=== PATIENT | female | born 1985 | race Caucasian/White ===

== ENCOUNTER → 2016-05-16 | Day surgery (SDC) | payer OTHER ==
[2016-03-06 07:44] VITALS: BMI 47.1
[~2016-05-16] MED LIST: BUPIVACAINE 0.25% 30 ML VIAL ONE; CEFAZOLIN 1 GM VIAL ONE; DEXAMETHASONE 4 MG/ML VIAL IV ONE; FENTANYL 100 MCG/2 ML VIAL IV ONE; FENTANYL 100 MCG/2 ML VIAL IV PRN; GLYCOPYRROLATE 1 MG VIAL IM ONE; HYDROmorphone 1 MG INJECTION IV PRN; HYDROmorphone 2 MG/ML VIAL IM ONE; KETOROLAC TROMETH 30 MG/ML VIAL IM ONE; LABETALOL 20 MG/4 ML SYRINGE IV PRN; LIDOCAINE 100 MG PFS IV ONE; MEPERIDINE 25 MG/ML TUBEX IV PRN; METHYLENE BLUE 10 MG/ML VIAL ONE; METOCLOPRAMIDE 10 MG/2 ML VIAL IV ONE; MIDAZOLAM 2 MG/2 ML VIAL IV ONE; NEOSTIGMINE 1 MG/1 ML (1:1000) INJ 10 ML MDV IM ONE; ONDANSETRON HCL 4 MG ODT TAB PO PRN; ONDANSETRON HCL 4 MG/2 ML VIAL IV ONE; ONDANSETRON HCL 4 MG/2 ML VIAL IV PRN; PROMETHAZINE 25 MG/ML VIAL IV PRN; PROMETHAZINE 25 MG/ML VIAL ONE; PROPOFOL 200 MG/20 ML VIAL IV ONE; ROCURONIUM 50 MG/5 ML VIAL IV ONE; SUCCINYLCHOLINE 20 MG/1 ML INJ 10 ML MDV IV ONE; hydrALAZINE 20 MG/ML VIAL IV PRN
[2016-05-16 08:16] LABS: MPV 8.3 fL (7.4-10.4)
--- NOTE | 2016-05-16 08:37 | HIM.ANES ---
Anesthesia Evaluation & Plan Diagnoses: PELVIC AND PERINEAL PAIN (05/16/16) Consented Procedure: Diagnostic Laparoscopy, possible laparotomy, and possible cautery of endometriosis - Focused Review of Systems Cardiac History: No: Hx Cardiac Disorders HEENT: No: Other HEENT Problems Respiratory: Yes: Hx Snoring Gastrointestinal: Yes: Hx Gastrointestinal Disorders, Hx Colonoscopy (2010), Hx Endoscopy (2010) Neurological/Musculoskeletal: No: Hx Neurological Disorders Psychological: No Hx Depression, No Hx Mental/Emotional Disorders Blood/Autoimmune: Yes: Hx Blood Transfusions, Hx Anemia No: Hx AIDS, Hx Hepatitis (type) Smoking Status: Never smoker Surgical History: Yes: Appendectomy, Cholecystectomy (2012), Back (2009 LUMBAR DISCECTOMY, 2013 LUMBAR DISCECTOMY, 2013 I&D LUMBAR SPINE), Other (BOWEL RESECTION, HERNIA REPAIR, BACK SURGERY X 2) Other Surgical History: SMALL BOWEL RESECTION 2010 - Focused Physical Exam NPO since: 05/15/16 at 2000 Mallampati: Class II Thyromental Distance: Greater than 3 Neck: Full Range of Motion Dental: Normal - no significant findings Cardiovascular/Chest: Normal Respiratory: Lungs clear Any problems with anesthesia, including nausea and vomiting?: No Any relatives with a history of Malignant Hyperthermia?: No Beta Antoinette given (if appropriate): N/A Does the patient have a history of Motion Sickness-: No Other: Problem List Problem Status Onset Cellulitis Acute Headache Acute Sepsis Acute PT/PTT/INR/ Urine Test Neg (NEGATIVE) 05/16/16 08:00 CBC/BMP/Other 05/16/16 08:05 Allergies Allergy/AdvReac Type Severity Reaction Status Date / Time No Known Allergies Allergy Verified 05/16/16 08:26 Home Medications Medication Instructions Recorded Last Taken Type Levonorgestrel-Ethin Estradiol 1 tab PO DAILY 05/11/16 05/15/16 20:00 History [Aviane-28 Tablet] Height and Weight Patient's height 5 ft 8 in Patient's weight 310 lb BMI 47.1 Vital Signs Temperature 98.2 F 05/16/16 08:37 Pulse Rate 99 05/16/16 08:37 Respiratory Rate 16 05/16/16 08:37 Blood Pressure 159/74 05/16/16 08:37 Pulse Oxygen Saturation 98 05/16/16 08:37 - Anesthetic Plan Anesthesia Type: General ASA Class: 2 -: I have examined this patient and reviewed the medical record. The patient has been assessed prior to anesthesia. Risks and benefits of anesthesia and anesthetic technique options have been discussed and all questions answered. The patient accepts the risk and desires me to proceed with the planned anesthetic.
--- NOTE | 2016-05-16 08:37 | SC.ANESPOS ---
Post-Anesthesia Note LOC: [facility] Calling Post-Anesthesia Assessment: Awake, Returned to Baseline, Hemodynamically Stable , Pain Control Adequate Phase I & II Recovery Complete: Yes Apparent Anesthesia Complication: No : N - Vital Signs Blood Pressure: 159/74 Pulse: 99 Resp Rate: 16 O2 Sat: 98 Temp: 98.2 F
[2016-05-16 08:43] LABS: SEG NEUTROPHIL 70 % (45-76)
--- NOTE | 2016-05-16 10:24 | HIMOPRPT ---
DATE OF PROCEDURE: 05/16/2016 PREOPERATIVE DIAGNOSIS: 1. Pelvic pain POSTOPERATIVE DIAGNOSIS: 1. Pelvic pain 2. Cervical polyp 3. Bilateral ovarian cysts 4. Endometriosis PROCEDURE: Cervical polypectomy and diagnostic laparoscopy with drainage of bilateral ovarian cysts SURGEON: Camelia Herring DO Customer Marketing Manager: Ricarda Garibay MD ANESTHESIOLOGIST: Dr. Puga ANESTHESIA: General ESTIMATED BLOOD LOSS: 1 mL COMPLICATIONS: None DRAINS: 300 mL of clear urine in the Palafox at the end of procedure SPECIMENS: Cervical polyp and ovarian cyst fluid FINDING: Omental adhesions in the supraumbilical region Bilateral ovarian cysts Cervical polyp Normal appearing uterus and tubes Several small areas of endometriosis lesions DESCRIPTION OF PROCEDURE: The patient was taken to the operating room she is prepped and draped in the normal sterile fashion. A Palafox catheter was inserted and then a speculum was placed so a uterine manipulator could be placed. When the speculum was inserted there is noted to be a small cervical polyp protruding from the cervical os. This was removed without difficulty using an Allis clamp. Attention was then turned to the already prepped abdomen after the uterine manipulator had been placed. The subumbilical region was injected with 0.25% plain Sensorcaine and an incision was made with a scalpel. A 5 mm port was placed under direct visualization using the laparoscope. Once intraperitoneal placement had been verified the abdomen was insufflated with gas. On initial inspection there was noted to be omental adhesions superior to the umbilicus. Liver edge appeared normal. Bilateral lower quadrant ports were then placed after injecting 0.25% plain Sensorcaine. A 10 mm port was placed in the left lower quadrant and a 5 mm port was placed in the right lower quadrant. Patient was then placed in Trendelenburg position and the pelvis was inspected. Once the bowel was moved out of the way there was noted to be 2 large ovarian cysts bilaterally. The uterus itself appeared normal and there appeared to be normal tubes. The posterior cul-de-sac did not appear to have any endometriosis lesions as well as the ovarian fossas. However on the anterior on the uterine edge near the bladder there were several small lesions that appeared to be endometriosis. Due to these lesions location on the bladder these were not cauterized. The bilateral ovarian cysts were drained using aspiration needle and at this time the procedure was ended. Patient was taken out of Trendelenburg position and the ports removed from the patient. The port sites were closed using 4 0 Monocryl in a subcuticular stitch with Dermabond on top. The uterine manipulator was removed from the cervix and the Palafox catheter was removed from the patient. The patient tolerated procedure well was sent to recovery room in stable condition.
[2016-05-16 15:18] VITALS: BP 159/74; PULSE 99; TEMP 98.2
== END ==
LOC: SDC 07:44
PROVIDERS: ATTEND Obstetrics & Gynecology
PROC: 0U914ZX Drainage of Left Ovary, Percutaneous Endoscopic Approach, Diagnostic (ICD-10-PCS; 2016-05-16)
PROC: 0UBC7ZX Excision of Cervix, Via Natural or Artificial Opening, Diagnostic (ICD-10-PCS; 2016-05-16)
PROC: 0U904ZX Drainage of Right Ovary, Percutaneous Endoscopic Approach, Diagnostic (ICD-10-PCS; principal; 2016-05-16 09:05)
DX: R10.2 Pelvic and perineal pain (principal); N84.1 Polyp of cervix uteri; N83.202 Unspecified ovarian cyst, left side; N83.201 Unspecified ovarian cyst, right side; K66.0 Peritoneal adhesions (postprocedural) (postinfection); N80.0 Endometriosis of uterus; E66.9 Obesity, unspecified; D64.9 Anemia, unspecified; E55.9 Vitamin D deficiency, unspecified; N97.0 Female infertility associated with anovulation; N92.1 Excessive and frequent menstruation with irregular cycle; Q51.3 Bicornate uterus; Z68.42 Body mass index [BMI] 45.0-49.9, adult
CPT/HCPCS: 49322; 57500; 81025; 85007; 85027; 88173; 88305; J0330; J0690; J1100; J1170; J1885; J2001; J2250; J2405; J2550; J2710; J2765; J3010; J3490; S0020; Q9968